=== PATIENT | female | born 1990 | race Caucasian/White ===

== ENCOUNTER 2022-10-16 17:27 | Emergency (ER) | payer SELFPAY ==
[2022-10-16 17:38] VITALS: BP 141/93; PULSE 106; RESP 14; TEMP 37.1; O2SAT 98; BMI 30.9
--- NOTE | 2022-10-16 17:59 | XRR_ITS ---
PROCEDURE INFORMATION: Exam: XR Chest Exam date and time: 10/16/2022 6:07 PM Age: 32 years old Clinical indication: Cough and dyspnea and fever and shortness of breath; Additional info: Cough, pain TECHNIQUE: Imaging protocol: Radiologic exam of the chest. Views: 2 views. COMPARISON: No relevant prior studies available. FINDINGS: Lungs: Unremarkable. No consolidation. Pleural spaces: Unremarkable. No pleural effusion. No pneumothorax. Heart/Mediastinum: Unremarkable. No cardiomegaly. Bones/joints: Unremarkable. XR/XR chest 2V* [id number] IMPRESSION: No acute findings.
--- NOTE | 2022-10-16 19:27 | W.ED.FEVER ---
HPI - Fever General: Chief Complaint: Fever Stated Complaint: Chest pain and SOB Time Seen by Provider: 10/16/22 18:32 History of Present Illness: Patient reports that she has had fever, chills, nasal congestion and drainage, cough, wheezing since Thursday. Patient reports that she is feeling short of breath and having pain with deep inspiration. She has been taking Mucinex to try and help. She was exposed to her niece who had influenza. Associated symptoms: Reports chills and nasal congestion; Deny abdominal pain, flank pain, dysuria, nausea or vomiting Review of Systems Const: Reports: fever(s), chills and body aches ENMT: Reports: throat pain, hoarseness, nasal discharge, nasal congestion and post nasal drip Card: Denies: palpitations Resp: Reports: dyspnea, non-productive cough, wheezing and pain on inspiration GI: Denies: abdominal pain, nausea or vomiting : Denies: flank pain, difficulty voiding or dysuria Physical Exam Const: COMMON NORMALS: patient oriented x3 and alert OTHER: Patient is ill-appearing nontoxic. HENMT: COMMON NORMALS: TM's normal bilaterally TYMPANIC MEMBRANE: TM's normal bilaterally THROAT: uvula midline and postnasal drainage Neck/C-Spine: COMMON NORMALS: no JVD Resp: COMMON NORMALS: normal respiratory effort and No use of accessory muscles AUSCULTATION: wheezes expiratory wheezes and throughout Cardio: COMMON NORMALS: no JVD, regular rate, regular rhythm, S1 normal heart sound present, S2 normal heart sound present and No murmurs present (Cardio) RATE: regular rate RHYTHM: regular rhythm HEART SOUNDS: S1 normal heart sound present and S2 normal heart sound present Neuro: COMMON NORMALS: patient oriented x3 SENSORIUM/ORIENTATION: Yes alert Course Vital Signs: Vital signs: Vital Signs Temperature 98.8 F 10/16/22 17:38 Pulse Rate 106 H 10/16/22 17:38 Respiratory Rate 14 10/16/22 17:38 Blood Pressure 141/93 10/16/22 17:38 Pulse Oximetry 98 10/16/22 17:38 Oxygen Delivery Me thod 10/16/22 17:38 MDM - Fever Medical Decision Making Consider upper respiratory infection, influenza, pneumonia, wheezing Chest x-ray shows no acute findings Influenza swab was done however patient will be discharged home prior to resulting test. Patient was exposed to influenza and has symptoms consistent with influenza. Advised her that I would like to treat her conservatively for influenza. Discussed treatments at home including alternating Tylenol Motrin to manage fever. Making sure that she is staying well-hydrated. Albuterol inhaler is ordered for patient so that she has help with wheezing and shortness of breath at home. Follow-up with primary care provider as needed. Return to the ER for new or worsening symptoms including, but not limited to, increasing shortness of breath despite use of albuterol, inability to keep oral fluids down, inability to control fever with Tylenol and Motrin. Lab Data Radiology Impressions Chest X-Ray 10/16/22 17:59 IMPRESSION: No acute findings. Discharge Plan Discharge Patient Disposition: Home Clinical Impression: Upper respiratory infection, viral, Wheezing Condition: Stable Discharge Orders: Discharge ED (Routine); Ordered 10/16/22 Ordered By: Chetna Pope Referrals: Grover Ortiz Jr, MD [Primary Care Provider] - Discharge Diet: Usual diet Discharge Activity: Increase activity as tolerated Patient Instructions: Influenza (ED), Wheezing (ED) Activity Restrictions/Additional Instructions: Use albuterol inhaler every 4 hours as needed for wheezing and shortness of breath. Make sure that you are staying hydrated. [id number] decongestants to help with the postnasal drainage. Follow-up with primary care provider as needed. Return to the ER for any new or worsening symptoms, inability to control fever with Tylenol Motrin, inability to keep oral liquids down. Stand Alone Forms: Work/School Release Coding Level of Care Code ED [place] Assistant for Connie Duran
[2022-10-16 19:35] LABS: Influenza A by IFA Positive (Negative); Influenza B by IFA Negative (Negative)
[2022-10-16 19:58] VITALS: PULSE 95; RESP 16; O2SAT 97
[2022-10-16] MEDS: albuterol 8 gm MDI 2 PUFF INHALATION (19:59)
== END 2022-10-16 20:03 | disposition home or self-care (01) ==
PROVIDERS: Emergency Medicine; Emergency Provider Nurse Practitioner Family; PCP Family Medicine
DX: J06.9 Acute upper respiratory infection, unspecified (principal); R06.2 Wheezing
CPT/HCPCS: 71046; 87804; 94640; 99283; J3535